=== PATIENT | female | born 1970 | race Caucasian/White ===

== ENCOUNTER 2016-09-23 15:31 | Inpatient (IN) | payer OTHER ==
[~2016-09-23] VITALS: Ht 157.5 cm; Wt 65.8 kg
[2016-09-23 16:32] LABS: BASO # 0.1 x10^3/uL (0.0-0.2); BASO % 1 % (0-3); EOS % 4 % (0-3); HEMOGLOBIN 14.4 g/dL (12.0-15.5); LYMPH # 2.3 x10^3/uL (1.0-4.8); LYMPH % 28 % (24-48); MEAN CORPUSCULAR HEMOGLOBIN 33 pg (25-35); MEAN CORPUSCULAR HGB CONC 34 g/dL (31-37); MEAN CORPUSCULAR VOLUME 96 fL (79-100); MONO % 6 % (0-9); NEUT % 61 % (31-73); PLATELET COUNT 289 x10^3/uL (140-400); RED BLOOD COUNT 4.38 x10^6/uL (3.50-5.40); RED CELL DISTRIBUTION WIDTH 12.5 % (11.5-14.5); WHITE BLOOD COUNT 8.1 x10^3/uL (4.0-11.0)
[2016-09-23 16:49] LABS: CALCIUM 9.4 mg/dL (8.5-10.1); CREATININE 0.7 mg/dL (0.6-1.0); GFR 90.9
[2016-09-23] MEDS ORDERED: ONDANSETRON PF 4 MG/2 ML VIAL. ONE ×2 (17:25→20:47)
[2016-09-23] MEDS: FENTANYL PF 100 MCG/2 ML VIAL. IV PRN ×5 (17:32→21:36)
[2016-09-23] MEDS ORDERED: ONDANSETRON PF 4 MG/2 ML VIAL. IV ONE (17:45)
[2016-09-23] MEDS ORDERED: CONTRAST GIVEN MC PRN (18:30)
[2016-09-23] MEDS ORDERED: IOHEXOL 300 MG/ML 75 ML VIAL IV ONE (18:30)
--- NOTE | 2016-09-23 18:47 | PHYS DOC ---
Past Medical History Past Medical History: No Pertinent History Past Surgical History: Cholecystectomy, Hysterectomy Alcohol Use: None Drug Use: None Adult General Chief Complaint Chief Complaint: ABDOMINAL PAIN HPI HPI Patient is a 46 year old female who presents with severe supraumbilical pain from known incisional hernia since yesterday around 8 PM. Her pain started gradually and is now generalized throughout her abdomen. She also has severe right upper quadrant and left upper quadrant abdominal pain as well that started after hernia pain. She notes nausea without emesis. She had a bowel movement was normal today. She has chills. She denies dark or bloody stools. She denies dysuria, hematuria, or measured fever. Review of Systems Review of Systems Constitutional: Denies fever [] Eyes: Denies change in visual acuity, redness, or eye pain [] HENT: Denies nasal congestion or sore throat [] Respiratory: Denies cough or shortness of breath [] Cardiovascular: No additional information not addressed in HPI [] GI: Denies vomiting, bloody stools or diarrhea [] : Denies dysuria or hematuria [] Musculoskeletal: Denies back pain or joint pain [] Integument: Denies rash or skin lesions [] Neurologic: Denies headache, focal weakness or sensory changes [] Endocrine: Denies polyuria or polydipsia [] Current Medications Current Medications Current Medications Medications (Trade) Dose Ordered Sig/Kristy Start Time Stop Time Status Last Admin Dose Admin Fentanyl Citrate (Fentanyl 2ml Vial) 75 mcg PRN Q15MIN PRN 09/23/16 16:30 09/23/16 20:32 DC 09/23/16 18:48 75 MCG Info (Do NOT chart on this entry -- for MONITORING) 1 each PRN DAILY PRN 09/23/16 18:30 09/25/16 18:29 Iohexol (Omnipaque 300 Mg/ml) 75 ml 1X ONCE 09/23/16 18:30 09/23/16 18:31 DC 09/23/16 18:41 75 ML Ondansetron HCl (Zofran) 4 mg 1X ONCE 09/23/16 17:45 09/23/16 17:46 DC 09/23/16 17:41 4 MG Allergies Allergies Physical Exam Physical Exam Constitutional: Well developed, well nourished, no acute distress, non-toxic appearance. [] HENT: Normocephalic, atraumatic, bilateral external ears normal, oropharynx moist, nose normal. [] Eyes: PERRLA, EOMI. [] Neck: Normal range of motion, supple. [] Cardiovascular:Heart rate regular rhythm [] Lungs & Thorax: Bilateral breath sounds clear to auscultation [] Abdomen: Bowel sounds normal, soft, significant tenderness to supraumbilical hernia with small palpable hernia with no overlying skin changes or palpable crepitance/induration/warmth, moderate right upper quadrant and left upper quadrant tenderness with minimal bilateral lower tenderness, has voluntary guarding (swats hand away). [] Skin: Warm, dry, no erythema, no rash. [] Back: No tenderness, no CVA tenderness. [] Extremities: ROM intact, no edema. [] Neurologic: Alert and oriented X 3, normal motor function, normal sensory function, no focal deficits noted. [] Psychologic: Affect normal, judgement normal, mood normal. [] Current Patient Data Vital Signs Vital Signs Date Time Temp Pulse Resp B/P Pulse Ox O2 Delivery O2 Flow Rate FiO2 09/23/16 18:48 24 09/23/16 16:12 98.3 75 129/75 99 Room Air 98.3 Lab Values Laboratory Tests Test 09/23/16 16:00 White Blood Count 8.1x10^3/uL (4.0-11.0) Red Blood Count 4.38x10^6/uL (3.50-5.40) Hemoglobin 14.4g/dL (12.0-15.5) Hematocrit 42.0% (36.0-47.0) Mean Corpuscular Volume 96fL (79-100) Mean Corpuscular Hemoglobin 33pg (25-35) Mean Corpuscular Hemoglobin Concent 34g/dL (31-37) Red Cell Distribution Width 12.5% (11.5-14.5) Platelet Count 289x10^3/uL (140-400) Neutrophils (%) (Auto) 61% (31-73) Lymphocytes (%) (Auto) 28% (24-48) Monocytes (%) (Auto) 6% (0-9) Eosinophils (%) (Auto) 4% (0-3) H Basophils (%) (Auto) 1% (0-3) Neutrophils # (Auto) 5.0x10^3uL (1.8-7.7) Lymphocytes # (Auto) 2.3x10^3/uL (1.0-4.8) Monocytes # (Auto) 0.5x10^3/uL (0.0-1.1) Eosinophils # (Auto) 0.3x10^3/uL (0.0-0.7) Basophils # (Auto) 0.1x10^3/uL (0.0-0.2) Sodium Level 144mmol/L (136-145) Potassium Level 4.0mmol/L (3.5-5.1) Chloride Level 106mmol/L (98-107) Carbon Dioxide Level 28mmol/L (21-32) Anion Gap 10 (6-14) Blood Urea Nitrogen 9mg/dL (7-20) Creatinine 0.7mg/dL (0.6-1.0) Estimated GFR (Cockcroft-Gault) 90.9 Glucose Level 93mg/dL (70-99) Lactic Acid Level 1.1mmol/L (0.4-2.0) Calcium Level 9.4mg/dL (8.5-10.1) Laboratory Tests 09/23/16 16:00 Laboratory Tests 09/23/16 16:00 Radiology/Procedures Radiology/Procedures CT abdomen and pelvis with IV contrast IMPRESSION Small umbilical hernia is seen which contains fat. This has increased density within it which could reflect strangulation. Clinical correlation is recommended. No additional acute abnormality is seen. Electronically signed by: Felipe Barrera MD (Sep 23, 2016 19:02:14) Course & Med Decision Making Course & Med Decision Making Pertinent Labs and Imaging studies reviewed. (See chart for details) Laboratory evaluation is unremarkable. Discussed concern for incarcerated hernia with Dr. Kennedy, general surgery, who requested CT abdomen and pelvis and has come see the patient. He notes she needs operative management. He will admit her. Dragon Disclaimer Dragon Disclaimer This electronic medical record was generated, in whole or in part, using a voice recognition dictation system. Departure Departure Impression: Primary Impression: Incarcerated incisional hernia Disposition: ADMITTED INPATIENT Condition: STABLE Referrals: SYBIL PERDOMO MD (PCP) Toña BOWLES MD Sep 23, 2016 18:47
--- NOTE | 2016-09-23 19:03 | RAD ---
PROCEDURE CT scan of the abdomen and pelvis with contrast 09/23/2016 HISTORY Abdominal pain since earlier today. TECHNIQUE After the intravenous administration 75 cc of Omnipaque 300, contiguous, 5 millimeter axial sections were obtained through the abdomen and pelvis. One or more of the following individualized dose reduction techniques were utilized for this study: 1. Automated exposure control. 2. Adjustment of the mA and/or kV according to patient size. 3. Use of iterative reconstruction technique. FINDINGS Images through the lung bases demonstrate minimal dependent subsegmental atelectasis bilaterally. The liver, spleen, pancreas, adrenal glands and kidneys are within normal limits. The abdominal aorta tapers normally. Surgical clips are seen within the gallbladder fossa consistent with a cholecystectomy. No free fluid or free air is within the abdomen. There is no evidence of bowel obstruction. Air and stool seen throughout the colon. The appendix is well-visualized is within normal limits. There is a small fat containing umbilical hernia which measures 2.7 centimeters in greatest diameter. This contains fat. Increased density is seen within the fat which could suggest strangulation. Clinical correlation with this finding is recommended. Images through the pelvis demonstrate the urinary bladder distended with urine. Calcifications are seen within the pelvis consistent with phleboliths. No adnexal mass is seen. No free fluid is noted. Minimal S-shaped curvature of the thoracolumbar spine is seen. IMPRESSION Small umbilical hernia is seen which contains fat. This has increased density within it which could reflect strangulation. Clinical correlation is recommended. No additional acute abnormality is seen. Electronically signed by: Felipe Barrera MD (Sep 23, 2016 19:02:14)
--- NOTE | 2016-09-23 19:19 | PDOC1 ---
History and Physical Date of Admission Date of Admission DATE: 09/23/16 TIME: 19:16 Current Medications Current Medications Current Medications Fentanyl Citrate (Fentanyl 2ml Vial) 75 mcg PRN Q15MIN PRN IV pain greater than 3 Last administered on 09/23/16 18:48; Start 09/23/16 at 16:30; Stop at 00:00 Ondansetron HCl (Zofran) 4 mg STK-MED ONCE .ROUTE ; Start 09/23/16 at 17:25; Stop 09/23/16 at 17:26; Status DC Ondansetron HCl (Zofran) 4 mg 1X ONCE IV Last administered on 09/23/16 17:41; Start 09/23/16 at 17:45; Stop 09/23/16 at 17:46; Status DC Iohexol (Omnipaque 300 Mg/ml) 75 ml 1X ONCE IV Last administered on 09/23/16 18:41; Start 09/23/16 at 18:30; Stop 09/23/16 at 18:31; Status DC Info (Do NOT chart on this entry -- for MONITORING) 1 each PRN DAILY PRN MC SEE COMMENTS; Start 09/23/16 at 18:30; Stop 09/25/16 at 18:29 Allergies Allergies: Coded Allergies: Penicillins (Verified Allergy, Unknown, 09/23/16) Vitals Vitals Vital Signs Date Time Temp Pulse Resp B/P Pulse Ox O2 Delivery O2 Flow Rate FiO2 09/23/16 18:48 24 09/23/16 16:12 98.3 75 129/75 99 Room Air 98.3 Labs Labs Laboratory Tests Test 09/23/16 16:00 White Blood Count 8.1x10^3/uL (4.0-11.0) Red Blood Count 4.38x10^6/uL (3.50-5.40) Hemoglobin 14.4g/dL (12.0-15.5) Hematocrit 42.0% (36.0-47.0) Mean Corpuscular Volume 96fL (79-100) Mean Corpuscular Hemoglobin 33pg (25-35) Mean Corpuscular Hemoglobin Concent 34g/dL (31-37) Red Cell Distribution Width 12.5% (11.5-14.5) Platelet Count 289x10^3/uL (140-400) Neutrophils (%) (Auto) 61% (31-73) Lymphocytes (%) (Auto) 28% (24-48) Monocytes (%) (Auto) 6% (0-9) Eosinophils (%) (Auto) 4% (0-3) Basophils (%) (Auto) 1% (0-3) Neutrophils # (Auto) 5.0x10^3uL (1.8-7.7) Lymphocytes # (Auto) 2.3x10^3/uL (1.0-4.8) Monocytes # (Auto) 0.5x10^3/uL (0.0-1.1) Eosinophils # (Auto) 0.3x10^3/uL (0.0-0.7) Basophils # (Auto) 0.1x10^3/uL (0.0-0.2) Sodium Level 144mmol/L (136-145) Potassium Level 4.0mmol/L (3.5-5.1) Chloride Level 106mmol/L (98-107) Carbon Dioxide Level 28mmol/L (21-32) Anion Gap 10 (6-14) Blood Urea Nitrogen 9mg/dL (7-20) Creatinine 0.7mg/dL (0.6-1.0) Estimated GFR (Cockcroft-Gault) 90.9 Glucose Level 93mg/dL (70-99) Lactic Acid Level 1.1mmol/L (0.4-2.0) Calcium Level 9.4mg/dL (8.5-10.1) Laboratory Tests Test 09/23/16 16:00 White Blood Count 8.1x10^3/uL (4.0-11.0) Red Blood Count 4.38x10^6/uL (3.50-5.40) Hemoglobin 14.4g/dL (12.0-15.5) Hematocrit 42.0% (36.0-47.0) Mean Corpuscular Volume 96fL (79-100) Mean Corpuscular Hemoglobin 33pg (25-35) Mean Corpuscular Hemoglobin Concent 34g/dL (31-37) Red Cell Distribution Width 12.5% (11.5-14.5) Platelet Count 289x10^3/uL (140-400) Neutrophils (%) (Auto) 61% (31-73) Lymphocytes (%) (Auto) 28% (24-48) Monocytes (%) (Auto) 6% (0-9) Eosinophils (%) (Auto) 4% (0-3) Basophils (%) (Auto) 1% (0-3) Neutrophils # (Auto) 5.0x10^3uL (1.8-7.7) Lymphocytes # (Auto) 2.3x10^3/uL (1.0-4.8) Monocytes # (Auto) 0.5x10^3/uL (0.0-1.1) Eosinophils # (Auto) 0.3x10^3/uL (0.0-0.7) Basophils # (Auto) 0.1x10^3/uL (0.0-0.2) Sodium Level 144mmol/L (136-145) Potassium Level 4.0mmol/L (3.5-5.1) Chloride Level 106mmol/L (98-107) Carbon Dioxide Level 28mmol/L (21-32) Anion Gap 10 (6-14) Blood Urea Nitrogen 9mg/dL (7-20) Creatinine 0.7mg/dL (0.6-1.0) Estimated GFR (Cockcroft-Gault) 90.9 Glucose Level 93mg/dL (70-99) Lactic Acid Level 1.1mmol/L (0.4-2.0) Calcium Level 9.4mg/dL (8.5-10.1) VTE Prophylaxis Ordered VTE Prophylaxis Devices: Yes VTE Pharmacological Prophylaxi: Contraindicated Assessment/Plan Assessment/Plan incarcerated, possibly strangulated ventral incisional hernia Offered repair Explained risks including but not limited to bleeding, infection, possible recurrence, possible need for bowel resection. She understands and will proceed. FND Wk # [id number] POORNIMA ANAYA MD Sep 23, 2016 19:18
[2016-09-23] MEDS ORDERED: HYDROMORPHONE 2 MG/ML VIAL. ONE (19:28)
[2016-09-23] MEDS ORDERED: ONDANSETRON PF 4 MG/2 ML VIAL. IV PRN (19:30)
[2016-09-23] MEDS ORDERED: ACETAMINOPHEN 325 MG TABLET. PO PRN (19:30)
[2016-09-23] MEDS ORDERED: ROCURONIUM 50 MG/5 ML VIAL. ONE (19:57)
[2016-09-23] MEDS ORDERED: SUCCINYLCHOLINE 200 MG/10 ML VIAL. ONE (19:57)
[2016-09-23] MEDS ORDERED: FENTANYL PF 250 MCG/5 ML VIAL. ONE (19:57)
[2016-09-23] MEDS ORDERED: BUPIVAC MPF-EPI 0.5%-1:200000 30 ML VIAL. ONE (20:00)
[2016-09-23] MEDS ORDERED: BUPIVACAINE MPF 0.5% 30 ML VIAL. ONE (20:28)
[2016-09-23] MEDS ORDERED: PROCHLORPERAZINE 10 MG/2 ML VIAL. IV PRN (20:30)
[2016-09-23] MEDS ORDERED: FENTANYL PF 100 MCG/2 ML VIAL. IV PRN (20:30)
[2016-09-23] MEDS ORDERED: LIDOCAINE 1% 1 ML SYRINGE. ID PRN (20:30)
[2016-09-23] MEDS ORDERED: IV RINGERS,LACTATED 1000ML 1,000 ML IV SCH (20:30)
[2016-09-23] MEDS ORDERED: LIDOCAINE 2% PF Vial for OR 5 ML VIAL. ONE (20:47)
[2016-09-23] MEDS ORDERED: PROPOFOL 20 ML IV ONE (20:47)
[2016-09-23] MEDS ORDERED: DEXAMETHASONE SOD PHOS 20 MG/5 ML VIAL. ONE (20:47)
[2016-09-23] MEDS ORDERED: SEVOFLURANE 61 TO 120 MINUTES. IH ONE (20:47)
[2016-09-23] MEDS ORDERED: GLYCOPYRROLATE 1 MG/5 ML VIAL. ONE (20:48)
[2016-09-23] MEDS ORDERED: NEOSTIGMINE METHYLSULFATE 5 MG/5 ML SYRINGE. ONE (20:48)
[2016-09-23] MEDS ORDERED: FENTANYL PF 100 MCG/2 ML VIAL. ONE (21:07)
[2016-09-23] MEDS ORDERED: OXYCODONE/APAP 5/325 TABLET. PO PRN (21:15)
[2016-09-23] MEDS ORDERED: 0.9 % SODIUM CHLORIDE 10 ML DISP.SYRIN. IV PRN (21:15)
[2016-09-23] MEDS ORDERED: DIPHENHYDRAMINE HCL 25 MG CAPSULE PO PRN (21:15)
[2016-09-23] MEDS ORDERED: DIPHENHYDRAMINE 50 MG/ML VIAL IV PRN (21:15)
[2016-09-23] MEDS: MORPHINE SULFATE 2 MG/ML DISP.SYRIN. IV PRN ×2 (21:23→21:46)
--- NOTE | 2016-09-23 21:24 | PDOC ---
BRIEF OPERATIVE NOTE Date: Sep 23, 2016 Pre-Op Diagnosis incarcerated ventral incisional hernia Post-Op Diagnosis same with some strangulated fatty tissue Procedure Performed primary repair Surgeon Brent Braille Teacher Pauline ALVARENGA Anesthesia Type: General Blood Loss 5cc IV Fluid 1200cc Specimens Obtained hernia sack with incarcerated contents Findings incarcerated preperitoneal fat Complications none Additional Remarks # [id number] POORNIMA ANAYA MD Sep 23, 2016 21:24
[2016-09-23] MEDS: HYDROMORPHONE 2 MG/ML VIAL. IV PRN ×7 (21:38→23:49)
[2016-09-23] MEDS ORDERED: ENOXAPARIN 40 MG/0.4 ML DISP.SYRIN. SQ SCH (22:00)
--- NOTE | 2016-09-23 22:46 | HP ---
ADMIT DATE: 09/23/2016 CHIEF COMPLAINT: Abdominal pain. HISTORY OF PRESENT ILLNESS: The patient is a 46-year-old female who has had previous laparoscopic abdominal surgeries. She is known for some time with hernia resides just above her umbilicus associated with an old trocar site. Usually, she can manage this with ibuprofen. Today, it became much worse. She presented to the ED and was found to have an incarcerated hernia. She is brought for repair. PAST SURGICAL HISTORY: She has had a previous tubal ligation, laparoscopic cholecystectomy, laparoscopic-assisted hysterectomy. Medically, denies any heart, lung or kidney problems. ALLERGIES: SHE IS ALLERGIC TO PENICILLIN AND SOME TYPE OF AN ANTIBIOTIC THAT SHE WAS GIVEN THAT CAUSED HER LEFT ARM TO SWELL. ROUTINE MEDICATIONS: Listed on reconciliation sheet. SOCIAL HISTORY: She is a half pack to 1 pack a day smoker, who occasionally uses alcohol. FAMILY HISTORY: Noncontributory to this illness. REVIEW OF SYSTEMS: GENERAL: Denies fevers or chills. HEENT: No recent sore throat or earaches. RESPIRATORY: Occasional cough due to her smoking. CARDIAC: Denies chest pain or palpitations. GASTROINTESTINAL: No nausea, vomiting, or diarrhea. GENITOURINARY: No increased frequency or dysuria. MUSCULOSKELETAL: No back or joint pain. NEUROLOGIC: Denies visual changes or headaches. PHYSICAL EXAMINATION: GENERAL: Reveals a well-developed, well-nourished female, who is not in acute distress. VITAL SIGNS: Her temperature is 98.3, heart rate 75, blood pressure 129/75. HEENT: She is normocephalic. EOMs intact. NECK: Supple. LUNGS: Clear. HEART: Has regular rate and rhythm. BREAST: Deferred. ABDOMEN: Belly is soft and nondistended. There are well healed laparoscopic scars. Just above the umbilicus associated with previous port site is an area of excruciate tenderness and subtle fullness. PELVIC AND RECTAL: Deferred. EXTREMITIES: Showed no gross skeletal abnormalities. NEUROLOGIC: She is grossly intact. LABORATORY AND IMAGING STUDIES: CT scan of the abdomen and pelvis shows umbilical hernia containing fatty tissue with increased density suggesting possible strangulation. Lab on presentation, white count 8000, hemoglobin 14. Chemistries are unremarkable. IMPRESSION: Incarcerated, possibly strangulated supraumbilical incisional hernia. PLAN: I offered repair. I discussed the procedure with the patient including risks of bleeding, infection, or recurrence. She understands and will proceed. POORNIMA ANAYA MD DR: CHERI/dominique JOB#: [id number] / [id number]
[2016-09-23 22:53] VITALS: BP 112/63
[2016-09-23 23:09] VITALS: BP 108/57
[2016-09-23 23:24] VITALS: BP 110/60
[2016-09-23] MEDS: POTASSIUM CL 20MEQ-0.45% NACL 1,000 ML IV SCH (23:33)
[2016-09-23 23:39] VITALS: BP 104/55
[2016-09-24 00:09] VITALS: BP 103/56
[2016-09-24] MEDS: OXYCODONE/APAP 5/325 TABLET. PO PRN ×2 (00:37→08:39)
[2016-09-24 00:39] VITALS: BP 112/62
[2016-09-24 01:39] VITALS: BP 107/54
--- NOTE | 2016-09-24 02:35 | OP ---
DATE OF SURGERY: 09/23/2016 PREOPERATIVE DIAGNOSIS: Incarcerated ventral incisional hernia. POSTOPERATIVE DIAGNOSIS: Incarcerated ventral incisional hernia with some strangulated fatty tissue. PROCEDURE: Primary repair. SURGEON: Robe Anaya MD FORE[employer]Y FACULTY MEMBER: ____ LYLE Pineda. ANESTHESIA: General. ESTIMATED BLOOD LOSS: 5 mL. INTRAVENOUS FLUIDS: 1200. INDICATIONS: The patient is a 46-year-old with previous laparoscopic cholecystectomy. She has had a hernia associated with a 5 mm port site just above her umbilicus for some time. Today, it got much more painful and the CT showed incarcerated fatty tissue with possible strangulation. She is brought for repair. OPERATIVE FINDINGS: The very small 5 mm fascial defect had extruded preperitoneal fat and small tongue of omentum, which had been compromised. DESCRIPTION OF PROCEDURE: The patient was brought to the operating suite, given the general endotracheal anesthetic, and the abdomen prepped and draped in the usual sterile fashion. An elliptical incision was outlined with a marking pen, infiltrated with local anesthetic, sharply incised and dissection carried down to the anterior sheath where the hernia contents were identified. They were mobilized circumferentially. It was then excised with LigaSure resection and passed off. The very small defect was closed with a single stitch of 0 PDS inverted [id number]. Good hemostasis was present. Correct sponge count was obtained. The wound was closed with interrupted 3-0 Vicryl in the subcutaneous tissue. A subcuticular 4-0 Monocryl with Steri-Strips for the skin. Sterile dressing applied. The patient awakened from her anesthetic and taken to the recovery room in satisfactory condition. ROBE ANAYA MD DR: CHERI/dominique JOB#: [id number] / [id number]
[2016-09-24 02:39] VITALS: BP 111/57
[2016-09-24] MEDS: HYDROMORPHONE 2 MG/ML VIAL. IV PRN ×3 (04:11→10:11)
[2016-09-24] MEDS: ONDANSETRON PF 4 MG/2 ML VIAL. IV PRN ×2 (05:47→11:16)
[2016-09-24] MEDS ORDERED: INFLUENZA VAX SCREEN BY RX. MC ONE (06:45)
[2016-09-24] MEDS ORDERED: ONDANSETRON PF 4 MG/2 ML VIAL. IV ONE (06:45)
[2016-09-24] MEDS ORDERED: HYDROMORPHONE 2 MG/ML VIAL. IV ONE (06:45)
[2016-09-24 07:00] VITALS: BP 104/57
[2016-09-24] MEDS ORDERED: DOCUSATE SODIUM 100 MG CAPSULE PO SCH (09:00)
[2016-09-24] MEDS ORDERED: FLU VACC QUAD 2016-17 (36MOS+)/PF 0.5 ML SYRINGE. VAX IM ONE (09:00)
[2016-09-24] MEDS: POTASSIUM CL 20MEQ-0.45% NACL 1,000 ML IV SCH (10:00)
--- NOTE | 2016-09-24 10:51 | PDOC ---
SURGICAL PROGRESS NOTE Subjective tolerating diet incisional pain urinating well Vital Signs Vital Signs Date Time Temp Pulse Resp B/P Pulse Ox O2 Delivery O2 Flow Rate FiO2 09/24/16 10:13 Room Air 09/24/16 07:00 98.1 74 20 104/57 93 98.1 I&O Intake and Output 09/24/16 07:00 Intake Total 2830 ml Balance 2830 ml Intake Oral 930 ml IV Total 1900 ml # Voids 3 General: Alert, Oriented X3, Cooperative, No acute distress Abdomen: Soft, Other (incision c/d/i, no erythema ) Labs Laboratory Tests Test 09/23/16 16:00 White Blood Count 8.1x10^3/uL (4.0-11.0) Red Blood Count 4.38x10^6/uL (3.50-5.40) Hemoglobin 14.4g/dL (12.0-15.5) Hematocrit 42.0% (36.0-47.0) Mean Corpuscular Volume 96fL (79-100) Mean Corpuscular Hemoglobin 33pg (25-35) Mean Corpuscular Hemoglobin Concent 34g/dL (31-37) Red Cell Distribution Width 12.5% (11.5-14.5) Platelet Count 289x10^3/uL (140-400) Neutrophils (%) (Auto) 61% (31-73) Lymphocytes (%) (Auto) 28% (24-48) Monocytes (%) (Auto) 6% (0-9) Eosinophils (%) (Auto) 4% (0-3) Basophils (%) (Auto) 1% (0-3) Neutrophils # (Auto) 5.0x10^3uL (1.8-7.7) Lymphocytes # (Auto) 2.3x10^3/uL (1.0-4.8) Monocytes # (Auto) 0.5x10^3/uL (0.0-1.1) Eosinophils # (Auto) 0.3x10^3/uL (0.0-0.7) Basophils # (Auto) 0.1x10^3/uL (0.0-0.2) Sodium Level 144mmol/L (136-145) Potassium Level 4.0mmol/L (3.5-5.1) Chloride Level 106mmol/L (98-107) Carbon Dioxide Level 28mmol/L (21-32) Anion Gap 10 (6-14) Blood Urea Nitrogen 9mg/dL (7-20) Creatinine 0.7mg/dL (0.6-1.0) Estimated GFR (Cockcroft-Gault) 90.9 Glucose Level 93mg/dL (70-99) Lactic Acid Level 1.1mmol/L (0.4-2.0) Calcium Level 9.4mg/dL (8.5-10.1) Laboratory Tests Test 09/23/16 16:00 White Blood Count 8.1x10^3/uL (4.0-11.0) Red Blood Count 4.38x10^6/uL (3.50-5.40) Hemoglobin 14.4g/dL (12.0-15.5) Hematocrit 42.0% (36.0-47.0) Mean Corpuscular Volume 96fL (79-100) Mean Corpuscular Hemoglobin 33pg (25-35) Mean Corpuscular Hemoglobin Concent 34g/dL (31-37) Red Cell Distribution Width 12.5% (11.5-14.5) Platelet Count 289x10^3/uL (140-400) Neutrophils (%) (Auto) 61% (31-73) Lymphocytes (%) (Auto) 28% (24-48) Monocytes (%) (Auto) 6% (0-9) Eosinophils (%) (Auto) 4% (0-3) Basophils (%) (Auto) 1% (0-3) Neutrophils # (Auto) 5.0x10^3uL (1.8-7.7) Lymphocytes # (Auto) 2.3x10^3/uL (1.0-4.8) Monocytes # (Auto) 0.5x10^3/uL (0.0-1.1) Eosinophils # (Auto) 0.3x10^3/uL (0.0-0.7) Basophils # (Auto) 0.1x10^3/uL (0.0-0.2) Sodium Level 144mmol/L (136-145) Potassium Level 4.0mmol/L (3.5-5.1) Chloride Level 106mmol/L (98-107) Carbon Dioxide Level 28mmol/L (21-32) Anion Gap 10 (6-14) Blood Urea Nitrogen 9mg/dL (7-20) Creatinine 0.7mg/dL (0.6-1.0) Estimated GFR (Cockcroft-Gault) 90.9 Glucose Level 93mg/dL (70-99) Lactic Acid Level 1.1mmol/L (0.4-2.0) Calcium Level 9.4mg/dL (8.5-10.1) Problem List Problems Medical Problems: (1) Incarcerated incisional hernia Status: Acute (2) Incarcerated ventral hernia Status: Acute Assessment/Plan s/p VI probable home this afternoon Problems: VILMA HACKETT APRN Sep 24, 2016 10:51
[2016-09-24] MEDS ORDERED: OXYC1TAB7 PO (10:54)
[2016-09-24 11:00] VITALS: BP 97/57
[2016-09-24] MEDS ORDERED: FLUCONAZOLE 100 MG TABLET. PO ONE (11:00)
--- NOTE | 2016-09-24 15:15 | ACF ---
Admission Forms Criteria ABDOMINAL PAIN Clinical Indications for Admission to Inpatient Care (Place 'X' for any and all applicable criteria): Admission is indicated for ANY ONE of the following(1)(2)(3)(4)(5): [ ]I. Inpatient admission required rather than observation care (Also use Abdominal Pain: Observation Care, as appropriate) because of ANY ONE of the following: [ ]a) Severe pain requiring acute inpatient management [ ]b) Identification of etiology/finding that requires inpatient care (eg, aortic dissection, free air) [ ]c) Absent bowel sounds with complete ileus(6) [ ]d) Suspected toxic megacolon [ ]e) Severe electrolyte abnormalities requiring inpatient care [ ]f) High fever or infection requiring inpatient admission as indicated by ANY ONE of following(7)(8): [ ] i) Appropriate outpatient or observational care antimicrobial treatment unavailable, not effective, or not feasible [ ] ii) Documented bacteremia [ ] iii) Temperature > 104.9 degrees F (oral) [ ] iv) T >103.1 F (oral) or < 96.8 F(rectal) that does not respond to all emergency treatment measures [ ]g) Signs of intestinal obstruction [B] [ ]h) Hemodynamic instability [ ]i) IV fluid to replace significant ongoing losses (greater than 3 L/m2 per day) (12)(13) [ ]j) Percutaneous or open drainage (eg, abscess, biliary tract ) procedures [ ]k) Parenteral nutrition regimen that must be implemented on inpatient basis [ ]l) Other condition,treatment or monitoring requiring inpatient admission. [ ]II. Peritoneal signs present [X]III. Surgery needed that cannot be performed on an ambulatory basis. [ ]IV. Evaluation requires patient to not eat or drink for extended period ( eg, more than 24 hours). [ ]V. Contraindications and/or Inappropriate clinical situations for Observational Care in patients with abdominal pain, when ANY ONE of the following is required: [ ]a) Thorough evaluation is required to prevent catastrophic events due to delays in diagnosing (e.g.Mesenteric ischemia) 1,3 [ ]b) Patient with severe pathology or with chronic symptoms unlikely to improve in the ED stay (3) [ ]. General contraindications and/or Inappropriate clinical situations for Observational Care in patients with abdominal pain, when ANY ONE of the following is required: [ ]a) Prediction of prolongation of LOS based on ANY ONE of the following may be considered as a contraindication for observational care 2, 3, 4, 5, 6, 7, 8, 9, 10, 11 [ ]i) Age > 65 yrs. [ ]ii) Patient arriving by ambulance [ ]iii) Patient with high acuity [ ]iv) Patient requiring vital sign monitoring [ ]v) Patient on IV medication [ ]b) Systolic blood pressures 180mmHg 3,12 [ ]c) Patient with altered mental status including delirium and other alteration of consciousness, (3) [ ]d) Patient whose discharge disposition will be to a nursing home home or rehabilitation home should not be managed in Emergency Department Observation Unit. CMS rule requires 3 days hospital stay before such placement.3,13 [ ]e) Patient with failure to thrive due to broad array of etiologies 3,16,17 [ ]f) Inability to ambulate 3,14 Extended stay beyond goal length of stay may be needed for(2)(3): [ ]a) Persistent abdominal pain with suspected intra-abdominal process [ ]b) Diagnosed condition requiring continued stay (e.g., pancreatitis, complicated diverticulitis) [ ]c) Surgery (e.g., colectomy) The original [employer] content created by [employer] has been revised. The portions of the content which have been revised are identified through the use of italic text or in bold, and [facility] has neither reviewed nor approved the modified material.All other unmodified content is copyright [employer]. Please see references footnoted in the original [facility] [employer] edition 2016 Admission Criteria Met?: Yes NATALIA RAPHAEL Sep 24, 2016 15:15
--- NOTE | 2016-09-26 15:05 | PATHOLOGY ---
PATHOLOGY REPORT * * * * * * * * FINAL DIAGNOSIS: Segment of fibromembranous and fibroadipose tissue, hernia sac and incarcerated content: - Hernia sac showing congestion, focal recent hemorrhage, and focal fat necrosis. (JPM:all; d/t: 09/26/2016) REPORT ELECTRONICALLY SIGNED BY: Aung Joseph M.D. DATE/TIME: 09/26/2016 15:05 * * * * * * * * GROSS PATHOLOGY: Received in formalin labeled "Don Swartz-hernia sac and incarcerated content," is a segment of blood tinged, pink-minaya to yellow-minaya membranous and lobulated fibroadipose tissue measuring 3.8 x 2.8 x 1.8 cm. No nodules or lesions are identified. Business [employer] Developer tissue is submitted in cassette A1. (TTL; 09/25/2016) INITIAL CPT CODE(S): A; 05843 Professional services performed [place] [facility] [place] [address] Technical services performed by [facility] at [address] [place] [address], [facility] [address], [place] [address]. SPECIMEN(S) RECEIVED: A.Hernia sac and incarcerated CLINICAL HISTORY: Abdominal pain PATIENT: DON SWARTZ /AGE: 6 1970 (Age: 46) PATIENT #: [id number] ALT CASE #: SPECIMEN COLLECTION DATE: 09/23/2016 SPECIMEN RECEIVED DATE: 09/25/2016 [facility] - [address] [place] [address] - PHONE: [phone] * * * END OF REPORT * * *
== END 2016-09-24 12:55 | disposition home or self-care (01) | DRG 355 ==
LOC: ER 15:31 → 4 NORTH 19:25
PROVIDERS: ADMIT Surgery; ATTEND Surgery
PROC: 0WQF0ZZ Repair Abdominal Wall, Open Approach (ICD-10-PCS; principal; 2016-09-23 20:15)
DX: K43.2 Incisional hernia without obstruction or gangrene (principal); F17.210 Nicotine dependence, cigarettes, uncomplicated; Z90.49 Acquired absence of other specified parts of digestive tract; Z98.51 Tubal ligation status; Z90.710 Acquired absence of both cervix and uterus; Z88.0 Allergy status to penicillin; Z88.1 Allergy status to other antibiotic agents
CPT/HCPCS: 36415; 74177; 80048; 83605; 85027; 90686; 96374; 96375; 96376; C1769; J0330; J1100; J1170; J1650; J1956; J2270; J2405; J2704; J2710; J3010; J3490; Q9967; 99285-25

== ENCOUNTER 2016-09-29 18:10 | Emergency (ER) | payer OTHER ==
[~2016-09-29] VITALS: Ht 157.5 cm; Wt 65.8 kg
[~2016-09-29 18:10] MED LIST: OXYC1TAB7 PO
[2016-09-29] MEDS ORDERED: ONDANSETRON PF 4 MG/2 ML VIAL. IV ONE ×2 (20:00→23:15)
[2016-09-29] MEDS ORDERED: IV NORMAL SALINE 1000ML BAG 1,000 ML IV SCH (20:00)
[2016-09-29] MEDS: FENTANYL PF 100 MCG/2 ML VIAL. IV PRN ×2 (20:34→22:28)
[2016-09-29 20:39] LABS: BASO # 0.1 x10^3/uL (0.0-0.2); BASO % 1 % (0-3); EOS % 7 % (0-3); HEMATOCRIT 42.2 % (36.0-47.0); HEMOGLOBIN 14.2 g/dL (12.0-15.5); LYMPH # 3.7 x10^3/uL (1.0-4.8); LYMPH % 43 % (24-48); MEAN CORPUSCULAR HEMOGLOBIN 33 pg (25-35); MEAN CORPUSCULAR HGB CONC 34 g/dL (31-37); MEAN CORPUSCULAR VOLUME 97 fL (79-100); MONO % 8 % (0-9); NEUT % 42 % (31-73); PLATELET COUNT 327 x10^3/uL (140-400); RED BLOOD COUNT 4.36 x10^6/uL (3.50-5.40); RED CELL DISTRIBUTION WIDTH 12.6 % (11.5-14.5); WHITE BLOOD COUNT 8.7 x10^3/uL (4.0-11.0)
[2016-09-29 20:42] LABS: BILIRUBIN,URINE NEGATIVE (NEG); GLUCOSE,URINE NEGATIVE (NEG); NITRITE,URINE NEGATIVE (NEG); PH,URINE 6.5; PROTEIN,URINE NEGATIVE (NEG-TRACE); UROBILINOGEN,URINE 0.2 mg/dL (0.2 mg/dL)
[2016-09-29 20:48] LABS: BACTERIA,URINE MANY /HPF (0-FEW); RBC,URINE OCC /HPF (0-2)
[2016-09-29 20:49] LABS: SQUAMOUS EPITHELIAL CELL,UR MANY /LPF
[2016-09-29 20:50] LABS: CALCIUM 9.2 mg/dL (8.5-10.1); CREATININE 0.7 mg/dL (0.6-1.0); GFR 90.9; POTASSIUM 3.8 mmol/L (3.5-5.1)
[2016-09-29 20:56] LABS: ALBUMIN 3.6 g/dL (3.4-5.0); TOTAL BILIRUBIN 0.2 mg/dL (0.2-1.0); TOTAL PROTEIN 7.3 g/dL (6.4-8.2)
[2016-09-29] MEDS ORDERED: ACETAMINOPHEN 500 MG TABLET PO ONE (23:15)
[2016-09-29 23:24] VITALS: BP 116/64
[2016-09-29] MEDS ORDERED: DICY10CA53 PO (23:46)
[2016-09-29] MEDS ORDERED: ONDA4TAB7 PO (23:46)
[2016-09-29] MEDS ORDERED: DOCU-27 PO (23:46)
[2016-09-29] MEDS ORDERED: OXYC-323 PO (23:46)
--- NOTE | 2016-09-30 02:00 | ED.ADGEN ---
Past Medical History Past Medical History: No Pertinent History, Cancer Additional Past Medical Histor: CERVICAL CA Past Surgical History: Cholecystectomy, Hysterectomy Additional Past Surgical Histo: HERNIA REPAIR Alcohol Use: Rarely Drug Use: None Adult General Chief Complaint Chief Complaint: NAUSEA/VOMITING/DIARRHA HPI HPI Patient is a 46 year old woman, with a history of hysterectomy, who is postop day #4 after a ventral hernia repair that was performed emergently for an incarcerated hernia by Dr. Kennedy of Gen. surgery, who presents to the emergency department with complaint of nausea, abdominal pain, generalized malaise for the past several days. Patient states that initially she is feeling better after surgery, but over the past day or so has been experiencing nausea, abdominal soreness, and some constipation. Patient states she has been using Percocet at home, and also taking stool softeners, 52 she's had a decreased appetite over this time. As well, and just is not feeling well. No fevers or chills, no injuries, no weakness numbness or tingling, no similar symptoms previously. Review of Systems Review of Systems Constitutional: Denies fever or chills. [] Eyes: Denies change in visual acuity. [] HENT: Denies nasal congestion or sore throat. [] Respiratory: Denies cough or shortness of breath. [] Cardiovascular: Denies chest pain or edema. [] GI: Abdominal pain, nausea, no vomiting, no diarrhea. Constipation. : Denies dysuria. [] Musculoskeletal: Denies back pain or joint pain. [] Integument: Denies rash. [] Neurologic: Denies headache, focal weakness or sensory changes. [] Endocrine: Denies polyuria or polydipsia. [] Lymphatic: Denies swollen glands. [] Psychiatric: Denies depression or anxiety. [] Current Medications Current Medications Current Medications Medications (Trade) Dose Ordered Sig/Kristy Start Time Stop Time Status Last Admin Dose Admin Acetaminophen (Tylenol) 1,000 mg 1X ONCE 09/29/16 23:15 09/29/16 23:16 DC 09/29/16 23:20 1,000 MG Fentanyl Citrate 25 mcg 25 mcg PRN Q15MIN PRN 09/29/16 19:45 09/30/16 00:03 DC 09/29/16 22:28 25 MCG Ondansetron HCl (Zofran) 4 mg 1X ONCE 09/29/16 23:15 09/29/16 23:16 DC 09/29/16 23:19 4 MG Sodium Chloride (Iv Sodium Chloride 0.9% 1000ml Bag) 1,000 ml @ 1,000 mls/hr Q1H 09/29/16 20:00 09/29/16 20:59 DC 09/29/16 20:00 1,000 MLS/HR Allergies Allergies Allergies Coded Allergies Type Severity Reaction Last Updated Verified Penicillins Allergy Intermediate 09/23/16 Yes Physical Exam Physical Exam Constitutional: Well developed, well nourished, no acute distress, non-toxic appearance. [] HENT: Normocephalic, atraumatic, bilateral external ears normal, oropharynx moist, no oral exudates, nose normal. [] Eyes: PERRLA, EOMI, conjunctiva normal, no discharge. [] Neck: Normal range of motion, no tenderness, supple, no stridor. [] Cardiovascular:Heart rate regular rhythm, no murmur, S1, S2, rubs or gallops. [] Lungs & Thorax: Bilateral breath sounds clear to auscultation, wheezing, rhonchi, rales. No chest tenderness or crepitus. [] Abdomen: Bowel sounds normal, soft, mild tenderness palpation, patient with healing surgical incision over the ventral region, is clean dry and intact, no evidence of induration or other abnormalities, no distention, no masses, no pulsatile masses. [] Skin: Warm, dry, no erythema, no rash. [] Back: No tenderness, no CVA tenderness. [] Extremities: No tenderness, no cyanosis, no clubbing, ROM intact, no edema. [] Neurologic: Alert and oriented X 3, normal motor function, normal sensory function, no focal deficits noted. [] Psychologic: Affect normal, judgement normal, mood normal. [] Current Patient Data Vital Signs Vital Signs Date Time Temp Pulse Resp B/P Pulse Ox O2 Delivery O2 Flow Rate FiO2 09/29/16 23:24 62 116/64 99 Room Air 09/29/16 22:28 16 09/29/16 19:23 98.6 98.6 Lab Values Laboratory Tests Test 09/29/16 20:25 09/29/16 22:30 White Blood Count 8.7x10^3/uL (4.0-11.0) Red Blood Count 4.36x10^6/uL (3.50-5.40) Hemoglobin 14.2g/dL (12.0-15.5) Hematocrit 42.2% (36.0-47.0) Mean Corpuscular Volume 97fL (79-100) Mean Corpuscular Hemoglobin 33pg (25-35) Mean Corpuscular Hemoglobin Concent 34g/dL (31-37) Red Cell Distribution Width 12.6% (11.5-14.5) Platelet Count 327x10^3/uL (140-400) Neutrophils (%) (Auto) 42% (31-73) Lymphocytes (%) (Auto) 43% (24-48) Monocytes (%) (Auto) 8% (0-9) Eosinophils (%) (Auto) 7% (0-3) H Basophils (%) (Auto) 1% (0-3) Neutrophils # (Auto) 3.6x10^3uL (1.8-7.7) Lymphocytes # (Auto) 3.7x10^3/uL (1.0-4.8) Monocytes # (Auto) 0.7x10^3/uL (0.0-1.1) Eosinophils # (Auto) 0.6x10^3/uL (0.0-0.7) Basophils # (Auto) 0.1x10^3/uL (0.0-0.2) Urine Collection Type Unknown Urine Color Yellow Urine Clarity Clear Urine pH 6.5 Urine Specific [place] 1.010 Urine Protein Negativemg/dL (NEG-TRACE) Urine Glucose (UA) Negativemg/dL (NEG) Urine Ketones (Stick) Negativemg/dL (NEG) Urine Blood Negative (NEG) Urine Nitrite Negative (NEG) Urine Bilirubin Negative (NEG) Urine Urobilinogen Dipstick 0.2mg/dL (0.2 mg/dL) Urine Leukocyte Esterase Negative (NEG) Urine RBC Occ/HPF (0-2) Urine WBC 5-10/HPF (0-4) Urine Squamous Epithelial Cells Many/LPF Urine Bacteria Many/HPF (0-FEW) Urine Mucus Slight/LPF Sodium Level 140mmol/L (136-145) Potassium Level 3.8mmol/L (3.5-5.1) Chloride Level 103mmol/L (98-107) Carbon Dioxide Level 30mmol/L (21-32) Anion Gap 7 (6-14) Blood Urea Nitrogen 9mg/dL (7-20) Creatinine 0.7mg/dL (0.6-1.0) Estimated GFR (Cockcroft-Gault) 90.9 BUN/Creatinine Ratio 13 (6-20) Glucose Level 87mg/dL (70-99) Calcium Level 9.2mg/dL (8.5-10.1) Total Bilirubin 0.2mg/dL (0.2-1.0) Aspartate Amino Transferase (AST) 26U/L (15-37) Alanine Aminotransferase (ALT) 29U/L (14-59) Alkaline Phosphatase 65U/L (46-116) Total Protein 7.3g/dL (6.4-8.2) Albumin 3.6g/dL (3.4-5.0) Albumin/Globulin Ratio 1.0 (1.0-1.7) Lipase 150U/L (73-393) Lactic Acid Level 0.5mmol/L (0.4-2.0) Laboratory Tests 09/29/16 20:25 Laboratory Tests 09/29/16 20:25 EKG EKG ECG: Rhythm strip: Heart rate 70 beats/minute, sinus rhythm, no ectopy. As interpreted by me. [] Radiology/Procedures Radiology/Procedures Abdominal series: 3 view: Normal cardiopulmonary silhouette, no infiltrates, no effusions, no pneumothorax, no soft tissue or bony abnormalities identified, stool and bowel gas throughout, evidence of constipation, no evidence of acute obstruction or other abnormalities identified. As interpreted by me. [] Course & Med Decision Making Course & Med Decision Making Pertinent Labs and Imaging studies reviewed. (See chart for details) Patient's laboratory studies and imaging do not reveal any evidence of concerning findings. Patient with no vomiting in the emergency department, nausea significant improvement receiving Zofran in the ED. She states that she is still having some pain, but otherwise just having generalized discomfort, states that she would like to be discharged home at this point, would rather be home than in the hospital. I did discuss findings with patient, no indications for admission or intervention at this time, we discussed use of Bentyl, Colace, and sparing use of Percocet along with oral hydration to assist with her symptoms, and concerning symptoms that prompt return to the emergency department or follow cultures were surgeon. Patient voiced understanding and agreement with plan as above, written prescriptions for Zofran, Bentyl, Percocet and Colace as stated, discharged home in stable condition with her family. Jamal Disclaimer Jamal Disclaimer This electronic medical record was generated, in whole or in part, using a voice recognition dictation system. Departure Impression: Primary Impression: Nausea Additional Impression: Postoperative abdominal pain Disposition: HOME, SELF-CARE Condition: IMPROVED Scripts Docusate Sodium (Colace)100 Mg Capsule1 Cap PO BID PRN constipation #20 CAP Prov:OZIEL VILLAGOMEZ DO 09/29/16 Dicyclomine Hcl (Bentyl)10 Mg Yaktnso48 Mg PO QID PRN PAIN #12 TAB Prov:OZIEL VILLAGOMEZ DO 09/29/16 Oxycodone/Apap 5-325 (Percocet 5-325 Mg Tablet)1 Each Tablet1 Tab PO PRN Q6HRS PRN PAIN #8 TAB Ref 0 Prov:OZIEL VILLAGOMEZ DO 09/29/16 Ondansetron Hcl (Zofran)4 Mg Tablet1 Tab PO PRN Q6-8HRS #12 TAB Prov:OZIEL VILLAGOMEZ DO 09/29/16 Problem Qualifiers OZIEL VILLAGOMEZ DO Sep 30, 2016 02:00
--- NOTE | 2016-09-30 08:27 | RAD ---
ACUTE ABDOMEN SERIES History:Postop hernia repair, abdominal pain Comparison: 05/27/2013 chest radiograph, no previous abdominal radiographs Findings:Single view of the chest and single supine and upright views of the abdomen are submitted. There is no infiltrate or pleural fluid. There is no free air. There is some retained stool in segments of the colon. There is overall nonobstructive bowel gas pattern. There has been cholecystectomy. Multiple calcifications in the bilateral pelvis are more likely due to phleboliths. Impression: 1.There is retained stool in segments of colon, overall nonobstructive bowel gas pattern.
== END 2016-09-30 00:01 | disposition home or self-care (01) ==
LOC: ER 18:10
DX: R11.0 Nausea (principal); G89.18 Other acute postprocedural pain; R10.84 Generalized abdominal pain; K59.00 Constipation, unspecified; Z88.0 Allergy status to penicillin; Z90.710 Acquired absence of both cervix and uterus; Z98.890 Other specified postprocedural states; Z90.49 Acquired absence of other specified parts of digestive tract
CPT/HCPCS: 36415; 74022; 80053; 81001; 83605; 83690; 85027; 87086; 96361; 96374; 96375; 96376; 99285; J2405; J3010; J7030

== ENCOUNTER 2017-07-07 09:59 | Emergency (ER) | payer OTHER ==
[~2017-07-07] VITALS: Ht 157.5 cm; Wt 65.8 kg
[~2017-07-07 09:59] MED LIST changes: +DICY10CA53 PO; +DOCU-109 PO; +ONDA4TAB7 PO; +OXYC-323 PO
[2017-07-07 10:17] VITALS: BP 125/73
--- NOTE | 2017-07-07 10:40 | PHYS DOC ---
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 She states that she went back pain. She states she woke up this morning and could hardly move. Patient also states she has had an upper back pain as well. She has bilateral hand swelling. She states it also hurts to close her hands. Patient states she does have a history of carpal tunnel. She states her position of comfort is standing. She states she has increased pain if she tries to sit or lie down. Patient denies any trauma or injury denies any loss of bowel or bladder. She states from her upper back she has pain that radiates down the back of both arms. Patient states from the lower back chest pains that radiate down bilateral legs. Review of Systems Review of Systems Constitutional: Denies fever or chills [] Eyes: Denies change in visual acuity, redness, or eye pain [] HENT: Denies nasal congestion or sore throat [] Respiratory: Denies cough or shortness of breath [] Cardiovascular: No additional information not addressed in HPI [] GI: Denies abdominal pain, nausea, vomiting, bloody stools or diarrhea [] : Denies dysuria or hematuria [] Musculoskeletal: back pain denies joint pain [] Integument: Denies rash or skin lesions [] Neurologic: Denies headache, focal weakness or sensory changes [] Endocrine: Denies polyuria or polydipsia [] All other systems were reviewed and found to be within normal limits, except as documented in this note. Current Medications Current Medications Current Medications Medications (Trade) Dose Ordered Sig/Kristy Start Time Stop Time Status Last Admin Dose Admin Acetaminophen/ Hydrocodone Bitart (Lortab 5/325) 1 tab 1X ONCE 07/07/17 10:45 07/07/17 10:46 DC 07/07/17 11:01 1 TAB Ketorolac Tromethamine (Toradol Im) 60 mg 1X ONCE 07/07/17 10:45 07/07/17 10:46 DC 07/07/17 11:01 60 MG Orphenadrine Citrate (Norflex) 60 mg 1X ONCE 07/07/17 10:45 07/07/17 10:46 DC 07/07/17 11:01 60 MG Allergies Allergies Allergies Coded Allergies Type Severity Reaction Last Updated Verified Penicillins Allergy Intermediate 09/23/16 Yes codeine Allergy Unknown Swelling 07/07/17 Yes Physical Exam Physical Exam Constitutional: Well developed, well nourished, no acute distress, non-toxic appearance. [] HENT: Normocephalic, atraumatic, bilateral external ears normal, oropharynx moist, no oral exudates, nose normal. [] Eyes: PERRLA, EOMI, conjunctiva normal, no discharge. [] Neck: Normal range of motion, no tenderness, supple, no stridor. [] Cardiovascular:Heart rate regular rhythm, no murmur [] Lungs & Thorax: Bilateral breath sounds clear to auscultation [] Skin: Warm, dry, no erythema, no rash. [] Back: Patient with thoracic, and lumbar pain noted on the spine and paraspinal area Extremities: No tenderness, no cyanosis, no clubbing, ROM intact, bilateral hand edema. [] Neurologic: Alert and oriented X 3, normal motor function, normal sensory function, no focal deficits noted. [] Psychologic: Affect normal, judgement normal, mood normal. [] Current Patient Data Vital Signs Vital Signs Date Time Temp Pulse Resp B/P (MAP) Pulse Ox O2 Delivery O2 Flow Rate FiO2 07/07/17 10:17 98.1 101 18 99 Room Air 98.1 Lab Values Laboratory Tests Test 07/07/17 11:08 White Blood Count 7.6 x10^3/uL (4.0-11.0) Red Blood Count 4.89 x10^6/uL (3.50-5.40) Hemoglobin 15.8 g/dL (12.0-15.5) H Hematocrit 46.4 % (36.0-47.0) Mean Corpuscular Volume 95 fL (79-100) Mean Corpuscular Hemoglobin 32 pg (25-35) Mean Corpuscular Hemoglobin Concent 34 g/dL (31-37) Red Cell Distribution Width 12.5 % (11.5-14.5) Platelet Count 318 x10^3/uL (140-400) Neutrophils (%) (Auto) 70 % (31-73) Lymphocytes (%) (Auto) 22 % (24-48) L Monocytes (%) (Auto) 6 % (0-9) Eosinophils (%) (Auto) 3 % (0-3) Basophils (%) (Auto) 0 % (0-3) Neutrophils # (Auto) 5.3 x10^3uL (1.8-7.7) Lymphocytes # (Auto) 1.6 x10^3/uL (1.0-4.8) Monocytes # (Auto) 0.5 x10^3/uL (0.0-1.1) Eosinophils # (Auto) 0.2 x10^3/uL (0.0-0.7) Basophils # (Auto) 0.0 x10^3/uL (0.0-0.2) Sodium Level 139 mmol/L (136-145) Potassium Level 4.6 mmol/L (3.5-5.1) Chloride Level 105 mmol/L (98-107) Carbon Dioxide Level 25 mmol/L (21-32) Anion Gap 9 (6-14) Blood Urea Nitrogen 14 mg/dL (7-20) Creatinine 0.7 mg/dL (0.6-1.0) Estimated GFR (Cockcroft-Gault) 90.5 BUN/Creatinine Ratio 20 (6-20) Glucose Level 106 mg/dL (70-99) H Calcium Level 9.7 mg/dL (8.5-10.1) Total Bilirubin 0.6 mg/dL (0.2-1.0) Aspartate Amino Transferase (AST) 31 U/L (15-37) Alanine Aminotransferase (ALT) 22 U/L (14-59) Alkaline Phosphatase 69 U/L (46-116) C-Reactive Protein, Quantitative 2.9 mg/L (0-3.3) Total Protein 7.9 g/dL (6.4-8.2) Albumin 4.2 g/dL (3.4-5.0) Albumin/Globulin Ratio 1.1 (1.0-1.7) Laboratory Tests 07/07/17 11:08 Laboratory Tests 07/07/17 11:08 EKG EKG [] Radiology/Procedures Radiology/Procedures [][facility] [address] [place] [address] IMAGING REPORT Signed PATIENT: DON SWARTZ ACCOUNT: [id number] : 1970 LOCATION: ER AGE: 47 SEX: F EXAM STATUS: REG ER ORD. PHYSICIAN: LIZZ SPANI APRN REASON: back pain with radiation of pain PROCEDURE: LUMBAR SPINE 2-3V LUMBAR SPINE 3 VIEWS Clinical Indication: back pain with radiation of pain, no injury Comparison: CT abdomen and pelvis with contrast 09/23/2016. Findings: 5 lumbar type vertebral bodies. Mild grade 1 anterolisthesis of L4 on L5. No significant disc space narrowing. Vertebral body height is maintained. There is no evidence of acute fracture or acute malalignment. The visualized pelvic bones appear intact. There are phleboliths in the pelvis. Cholecystectomy clips. IMPRESSION: 1. No acute compression fracture. 2. Mild grade 1 anterolisthesis of L4 on L5. DICTATED and SIGNED BY: KRISTIAN ISAACS MD DATE: 07/07/17 1102 CC: LIZZ SPAIN APRN; SYBIL PERDOMO MD ~ [facility] [address] [place] [address] IMAGING REPORT Signed PATIENT: DON SWARTZ ACCOUNT: [id number] : 1970 LOCATION: ER AGE: 47 SEX: F EXAM STATUS: REG ER ORD. PHYSICIAN: LIZZ SPAIN APRN REASON: back pain with radiation of pain PROCEDURE: THORACIC SPINE 3V THORACIC SPINE 3 VIEWS Clinical Indication: back pain with radiation of pain, no injury. Comparison: Cervical spine, 3 views 02/16/2016. Findings: Alignment of the thoracic spine appears anatomic. Vertebral body height is maintained. There is no evidence of acute fracture or acute malalignment. The paravertebral stripes are smooth. The visualized lungs are clear. Cholecystectomy clips. On the swimmer's view there is degenerative spondylosis of C5/C6 that is similar to prior study. There is less severe endplate spurring at C6/C7. IMPRESSION: No acute compression fracture or malalignment. DICTATED and SIGNED BY: KRISTIAN ISAACS MD DATE: 07/07/17 1059 CC: LIZZ SPAIN APRN; SYBIL PERDOMO MD ~ Course & Med Decision Making Course & Med Decision Making Pertinent Labs and Imaging studies reviewed. (See chart for details) She was provided with ReFlex, Toradol, and [place] here in the emergency department. She was provided with a prescription for Flexeril and ibuprofen at discharge. Patient's CBC, chemistries, and C-reactive protein were all within normal limits. Patient was recommended to keep bilateral hands elevated to help with swelling. Patient states that this actually causes her to have numbness and tingling in the hands. Patient continues to state she has a history of carpal tunnel and bilateral hands. Patient was also encouraged to use ice packs on 20 minutes off 20 minutes several times a day. Signs and symptoms return back to emergency department has been provided. I've spoken with the patient and/or caregivers. I've explained the patient's condition, diagnosis and treatment plan based on information available to me at this time. I've answered the patient's and/or caregivers questions and addressed any concerns. The patient and/or caregivers have a good understanding the patient's diagnosis, condition and treatment plan as can be expected at this point. Vital signs have been stabilized. The patient's condition is stable for discharge from the emergency department. The patient will pursue further outpatient evaluation with her primary care provider or other designated consulting physician as outlined in the discharge instructions. Patient and/or caregivers are agreeable to this plan of care and follow-up instructions have been explained in detail. The patient and/or caregivers have received these instructions in written format and expressed understanding of these discharge instructions. The patient and her caregivers are aware that if any significant change in condition or worsening of symptoms should prompt him to immediately return to this of the closest emergency department. If an emergent department is not readily available I would encourage him to call 911.[] Dragon Disclaimer Dragon Disclaimer This electronic medical record was generated, in whole or in part, using a voice recognition dictation system. Departure Departure Impression: Primary Impression: Back pain Additional Impression: Bilateral hand swelling Disposition: HOME, SELF-CARE Condition: STABLE Referrals: SYBIL PERDOMO MD (PCP) Patient Instructions: Back Pain, Adult, [id number], Hand Injuries, Easy-to- Read Additional Instructions: Activity as tolerated Medication as prescribed Flexeril will cause drowsiness do not take if you need to be alert and oriented Ibuprofen should be taken with food, stop taking if you develop upset stomach Ice packs to the back area area to help with pain on 20 minutes and off 20 minutes several times a day Elevation of bilateral hand to help decrease the swelling Followup with your primary care provider in 7-10 days Return to emergency department as needed for signs and symptoms that become worse. Scripts Ibuprofen (IBUPROFEN) 800 Mg Tablet 800 MG PO PRN Q6HRS Y for INFLAMMATION, #30 TAB Prov: LIZZ SPAIN APRN 07/07/17 Cyclobenzaprine Hcl (CYCLOBENZAPRINE HCL) 10 Mg Tablet 1 TAB PO TID Y for MUSCLE SPASMS, #30 TAB Prov: LIZZ SPAIN APRN 07/07/17 Problem Qualifiers Primary Impression: Back pain Back pain location: back pain in unspecified location Chronicity: unspecified Back pain laterality: unspecified Qualified Codes: M54.9 - Dorsalgia, unspecified LIZZ SPAIN [employer] SERVICE WORKER Jul 07, 2017 10:40
[2017-07-07] MEDS ORDERED: ORPHENADRINE CITRATE 60 MG/2 ML VIAL. IM ONE (10:45)
[2017-07-07] MEDS ORDERED: KETOROLAC 60 MG/2 ML INJ. IM ONE (10:45)
[2017-07-07] MEDS ORDERED: HYDROcodone/APAP 5/325MG 1 TAB TABLET PO ONE (10:45)
--- NOTE | 2017-07-07 11:06 | RAD ---
THORACIC SPINE 3 VIEWS Clinical Indication: back pain with radiation of pain, no injury. Comparison: Cervical spine, 3 views 02/16/2016. Findings: Alignment of the thoracic spine appears anatomic. Vertebral body height is maintained. There is no evidence of acute fracture or acute malalignment. The paravertebral stripes are smooth. The visualized lungs are clear. Cholecystectomy clips. On the swimmer's view there is degenerative spondylosis of C5/C6 that is similar to prior study. There is less severe endplate spurring at C6/C7. IMPRESSION: No acute compression fracture or malalignment.
--- NOTE | 2017-07-07 11:09 | RAD ---
LUMBAR SPINE 3 VIEWS Clinical Indication: back pain with radiation of pain, no injury Comparison: CT abdomen and pelvis with contrast 09/23/2016. Findings: 5 lumbar type vertebral bodies. Mild grade 1 anterolisthesis of L4 on L5. No significant disc space narrowing. Vertebral body height is maintained. There is no evidence of acute fracture or acute malalignment. The visualized pelvic bones appear intact. There are phleboliths in the pelvis. Cholecystectomy clips. IMPRESSION: 1. No acute compression fracture. 2. Mild grade 1 anterolisthesis of L4 on L5.
[2017-07-07 11:19] LABS: BASO % 0 % (0-3); EOS % 3 % (0-3); HEMATOCRIT 46.4 % (36.0-47.0); HEMOGLOBIN 15.8 g/dL (12.0-15.5); LYMPH # 1.6 x10^3/uL (1.0-4.8); LYMPH % 22 % (24-48); MEAN CORPUSCULAR HEMOGLOBIN 32 pg (25-35); MEAN CORPUSCULAR HGB CONC 34 g/dL (31-37); MEAN CORPUSCULAR VOLUME 95 fL (79-100); MONO % 6 % (0-9); NEUT % 70 % (31-73); PLATELET COUNT 318 x10^3/uL (140-400); RED BLOOD COUNT 4.89 x10^6/uL (3.50-5.40); RED CELL DISTRIBUTION WIDTH 12.5 % (11.5-14.5); WHITE BLOOD COUNT 7.6 x10^3/uL (4.0-11.0)
[2017-07-07 11:31] LABS: CALCIUM 9.7 mg/dL (8.5-10.1); CREATININE 0.7 mg/dL (0.6-1.0); GFR 90.5; POTASSIUM 4.6 mmol/L (3.5-5.1)
[2017-07-07 11:37] LABS: ALBUMIN 4.2 g/dL (3.4-5.0); ALBUMIN/GLOBULIN RATIO 1.1 (1.0-1.7); C-REACTIVE PROTEIN 2.9 mg/L (0-3.3); TOTAL BILIRUBIN 0.6 mg/dL (0.2-1.0); TOTAL PROTEIN 7.9 g/dL (6.4-8.2)
[2017-07-07] MEDS ORDERED: CYCL10TA2 PO (12:02)
[2017-07-07] MEDS ORDERED: IBUP-1060 PO (12:02)
== END 2017-07-07 12:14 | disposition home or self-care (01) ==
LOC: ER 09:59
DX: M54.6 Pain in thoracic spine (principal); M79.89 Other specified soft tissue disorders; M54.5 Low back pain; G56.03 Carpal tunnel syndrome, bilateral upper limbs; Z90.49 Acquired absence of other specified parts of digestive tract; Z90.710 Acquired absence of both cervix and uterus; Z88.0 Allergy status to penicillin; Z88.5 Allergy status to narcotic agent
CPT/HCPCS: 36415; 72072; 72100; 80053; 85025; 85651; 86140; 96372; 99285; J1885; J2360

== ENCOUNTER → 2017-07-26 | Outpatient (CLI) | payer OTHER ==
[2017-07-07 10:17] VITALS: BP 125/73
[~2017-07-26] MED LIST changes: +CYCL10TA2 PO; +GADOBUTROL 7.5 MMOL/7.5 ML VIAL IV ONE; +IBUP-1060 PO
--- NOTE | 2017-07-26 17:14 | RAD ---
MRI of the lumbar spine without and with contrast 07/26/2017 Clinical history: Low back pain which radiates down the right leg. TECHNIQUE: Unenhanced T1-weighted and T2-weighted sagittal and axial and inversion recovery sagittal images of the lumbar spine were obtained. After the intravenous administration of 6 cc of Gadavist, enhanced T1-weighted sagittal and axial images of the lumbar spine were obtained. FINDINGS: Minimal lateral curvature of the lumbar spine is seen convex to the left. Very mild anterolisthesis of L4 in relation to L5 is noted. Degenerative signal changes are seen involving the L4-5 and L5-S1 discs. The marrow signal of the visualized bony structures is within normal limits. The conus medullaris is normal morphology, position, and signal characteristics. No area of abnormal contrast enhancement is seen. The L1-2, L2-3 and L3-4 disc spaces are within normal limits. At the L4-5 disc space there is a mild generalized disc bulge. Degenerative changes are seen involving the facet joints bilaterally. There is mild to moderate ligamentum flavum hypertrophy bilaterally. There appears to be a synovial cyst projecting anteriorly and laterally from the left facet joint. This measures 6 mm in greatest diameter. These findings when combined result in mild central spinal canal stenosis. Mild left neural foraminal stenosis is seen. The right neural foramen is patent. At the L5-S1 disc space there is a mild generalized disc bulge. Degenerative changes are seen involving the facet joints bilaterally. These findings do not result in significant central spinal canal or neural foraminal stenosis. IMPRESSION: The changes of degenerative disc disease are seen involving the lower lumbar spine. These findings result in mild central spinal canal stenosis with mild left neural foraminal stenosis at L4-5. Electronically signed by: Felipe Barrera MD (07/26/2017 5:11 PM) [facility]
== END | disposition home or self-care (01) ==
LOC: MRI 15:26
PROVIDERS: ATTEND Family Medicine
DX: M51.36 Other intervertebral disc degeneration, lumbar region (principal); M48.061 Spinal stenosis, lumbar region without neurogenic claudication; M54.41 Lumbago with sciatica, right side; Z87.891 Personal history of nicotine dependence
CPT/HCPCS: 72158; A9585

== ENCOUNTER 2017-08-19 12:59 | Emergency (ER) | payer OTHER ==
[2017-08-19] MEDS: KETOROLAC 60 MG/2 ML INJ. IM (14:12)
[2017-08-19] MEDS: fentaNYL PF VIAL 100 MCG/2 ML VIAL IM (14:13)
== END 2017-08-19 14:19 | disposition home or self-care (01) ==
LOC: ER 12:59
DX: M54.41 Lumbago with sciatica, right side (principal); G89.29 Other chronic pain; Z90.49 Acquired absence of other specified parts of digestive tract; Z90.710 Acquired absence of both cervix and uterus; Z88.5 Allergy status to narcotic agent; Z88.0 Allergy status to penicillin; Z88.2 Allergy status to sulfonamides
CPT/HCPCS: 96372; 99284-25; J1885; J3010

== ENCOUNTER 2021-11-06 00:32 | Emergency (ER) | payer BC ==
[~2021-11-06] VITALS: Ht 160 cm; Wt 63.6 kg
[~2021-11-06 00:32] MED LIST changes: +CYCL10TA19 PO; -CYCL10TA2 PO; -GADOBUTROL 7.5 MMOL/7.5 ML VIAL IV ONE; -OXYC-323 PO; +OXYC1TAB15 PO
--- NOTE | 2021-11-06 01:53 | PHYS DOC ---
Past Medical History Past Medical History: Cancer, Other Additional Past Medical Histor: CERVICAL CA, CHRONIC BACK PAIN Past Surgical History: Cholecystectomy, Hysterectomy, Other Additional Past Surgical Histo: HERNIA REPAIR Smoking Status: Current Every Day Smoker Alcohol Use: None Drug Use: None General Adult EDM: Chief Complaint: UPPER EXTREMITY INJURY HPI: HPI: Patient is a 51 year old female who presents with greater than 3-week history of left shoulder pain. She was hoping to receive an MRI in the ER this morning. She has not made any attempt to contact her PCP about this, though she has a scheduled appointment on Sunday. She has a scheduled MRI on Sunday for a separate issue. She has chronic pain, takes hydrocodone regularly, though she is out of it currently. She has a pain contract with her primary care physician. She reports that the injury happened at work, she works at [employer], she has not been contacted to follow-up with their work comp physician. It sounds like she got her arm nearly caught in an elevator door and twisted it. No direct trauma or injury. No changes in symptoms today. The pain is localized to her left shoulder and scapular area. She denies chest pain or dyspnea. She denies numbness or tingling or weakness. She denies any injury since the one that occurred 3 weeks ago. Review of Systems: Review of Systems: Constitutional: Denies fever or chills. [] Respiratory: Denies cough or shortness of breath. [] Cardiovascular: Denies chest pain or edema. [] Musculoskeletal: Chronic back pain, no reported changes. Left shoulder pain. Integument: Denies wounds or rash Neurologic: Denies headache, focal weakness or sensory changes. [] Heart Score: C/O Chest Pain: No Risk Factors: Risk Factors: DM, Current or recent (<one month) smoker, HTN, HLP, family history of CAD, obesity. Risk Scores: Score 0 - 3: 2.5% MACE over next 6 weeks - Discharge Home Score 4 - 6: 20.3% MACE over next 6 weeks - Admit for Clinical Observation Score 7 - 10: 72.7% MACE over next 6 weeks - Early Invasive Strategies Allergies: Allergies: Allergies Coded Allergies Type Severity Reaction Last Updated Verified Penicillins Allergy Intermediate 09/23/16 Yes Sulfa (Sulfonamide Antibiotics) Allergy Intermediate HIVES 08/19/17 Yes codeine Allergy Intermediate Swelling 08/19/17 Yes Physical Exam: PE: Constitutional: Well developed, well nourished, no acute distress, non-toxic appearance. [] HENT: Normocephalic, atraumatic, Neck: Normal range of motion, no tenderness, supple, no stridor. Trachea is midline. No midline tenderness or step-offs. No deformity. Full range of motion. Cardiovascular: +2 radial pulses bilaterally. Cap refill is brisk, no edema Lungs & Thorax: Respirations are nonlabored Skin: Warm, dry, no erythema, no rash. No open wounds. No rash. Back: Full range of motion. No deformity. No midline tenderness or step-offs. Extremities: No limb deformity. She has full active and passive range of motion of her left shoulder in all directions, though pain does seem to be exacerbated by internal and external rotation of her shoulder. Palpation of her left deltoid and posterior trapezius and left scapular area reproduces pain. No crepitus, no step-offs, no warmth or erythema. No bony tenderness or step-offs. Neurologic: Alert and oriented X 3, normal motor function, normal sensory function, no focal deficits noted. [] Psychologic: Affect normal, judgement normal, mood normal. [] EKG: EKG: [] Radiology/Procedures: Radiology/Procedures: [] Course & Med Decision Making: Course & Med Decision Making I offered x-ray imaging, though I did explain that I did not feel that it would be useful or helpful, as I suspect that her pain is likely related to a soft tissue issue. She is comfortable deferring x-ray imaging at this time. I explained that MRIs of joints or not ever done in an emergency department setting, she must talk to her PCP about this. She has a scheduled appointment on Sunday. I would not prescribe opioids for discharge, but I did give her a dose of hydrocodone here. She is also given Flexeril. I going to prescribe a small amount of Flexeril for discharge as well. Return precautions are given. She verbalizes understanding. Jamal Disclaimer: Jamal Disclaimer: This electronic medical record was generated, in whole or in part, using a voice recognition dictation system. Departure Departure Impression: Primary Impression: Left shoulder pain Qualified Codes: M25.512 - Pain in left shoulder; G89.29 - Other chronic pain Disposition: 01 HOME / SELF CARE / HOMELESS Condition: STABLE Referrals: SYBIL PERDOMO MD (PCP) Patient Instructions: Shoulder Exercises, Generic, SportsMed, Shoulder Sprain Additional Instructions: Return to the ER if you have any acute injury or trauma, if you develop any paralysis or focal weakness, if you develop a temperature 100.4 or higher, any severe swelling or other concerns. Use the medication as needed/as directed. Follow-up with your doctor on Sunday as scheduled, you may need discuss outpatient physical therapy consult or MRI. Scripts Cyclobenzaprine Hcl (CYCLOBENZAPRINE HCL) 10 Mg Tablet 1 TAB PO BID for muscle spasm, #14 TAB Prov: CRYS GARNICA DO 11/06/21 RCYS GARNICA DO Nov 06, 2021 01:53
[2021-11-06] MEDS ORDERED: CYCL10TA19 PO (02:08)
[2021-11-06] MEDS: HYDROcodone/APAP 5/325MG 1 TAB TABLET PO ONE (02:12)
[2021-11-06] MEDS: CYCLOBENZAPRINE 10 MG TABLET. PO ONE (02:12)
[2021-11-06 02:14] VITALS: BP 107/68
== END 2021-11-06 02:18 | disposition home or self-care (01) ==
LOC: ER 00:32
DX: M25.512 Pain in left shoulder (principal); G89.29 Other chronic pain; F17.200 Nicotine dependence, unspecified, uncomplicated; Z88.0 Allergy status to penicillin; Z88.2 Allergy status to sulfonamides; Z88.5 Allergy status to narcotic agent
CPT/HCPCS: 99283